=== PATIENT | male | born 1950 | race Caucasian/White ===

== ENCOUNTER 2023-09-08 05:56 | Day surgery (SDC) | payer MEDICARE ==
[2023-09-08] VITALS (11 sets, daily range): BP systolic 106–154; BP diastolic 9–77; PULSE 54–58; RESP 13–16
[~2023-09-08] VITALS: Ht 177.8 cm; Wt 87.1 kg
[~2023-09-08 05:56] MED LIST: LISI20TA24 PO; OMEP-420 PO; VITAMIN B12 INJ
[2023-09-08] MEDS: 0.9%NACL 1000ML 1,000 ML IV ONE (07:51)
[2023-09-08] MEDS ORDERED: PROPOFOL 10 MG/ML 20ML VIAL IV ONE (09:15)
== END 2023-09-08 10:45 | disposition home or self-care (01) ==
LOC: DAH 05:56
PROVIDERS: ATTEND Internal Medicine Gastroenterology
DX: Z12.11 Encounter for screening for malignant neoplasm of colon (principal); K62.1 Rectal polyp; K57.30 Diverticulosis of large intestine without perforation or abscess without bleeding; K64.9 Unspecified hemorrhoids; K22.70 Barrett's esophagus without dysplasia; K44.9 Diaphragmatic hernia without obstruction or gangrene; K21.9 Gastro-esophageal reflux disease without esophagitis; Z82.49 Family history of ischemic heart disease and other diseases of the circulatory system; Z82.3 Family history of stroke; Z83.3 Family history of diabetes mellitus; Z82.5 Family history of asthma and other chronic lower respiratory diseases; Z80.9 Family history of malignant neoplasm, unspecified; Z98.890 Other specified postprocedural states
CPT/HCPCS: 45385; J7030 ×2; J2704; A4620; A4215; A4223; A7002; A4222; A4221; A4663; A4606; J3490